=== PATIENT | male | born 1965 | race African-American/Black ===

== ENCOUNTER 2017-05-02 13:43 | Day surgery (SDC) | payer OTHER, BC ==
[~2017-05-02] VITALS: Ht 182.9 cm; Wt 111.1 kg
[~2017-05-02 13:43] MED LIST: ASPIRIN81 M2 PO; CLARITIN,ALAVAR10 MG PO; COZAAR25 MG PO; FOLIC ACID1 MG PO; MAGNESIUM400 M1 PO; MYFORTIC360 MG PO; NORVASC5 MG PO; PHOSPHA250 MG PO; PRILOSEC OTC20 MG PO; PROGRAF1 MG PO; ROCALTROL0.25 MCG PO
[2017-05-02 14:24] VITALS: BP 131/82
[2017-05-02 15:04] LABS: HEMATOCRIT 36.4 % (38.0-50.0); MCH 29.9 PG (29.0-34.0); MCV 90.5 FL (86-99); MEAN PLAT.VOLUME 9.7 uM^3 (9.0-12.4); PLATELET COUNT 148 K/uL (156-360); RBC DIS.WIDTH-CV 14.2 % (11.8-14.6); RBC DIS.WIDTH-SD 47.2 % (39-53); RED BLOOD COUNT 4.02 M/uL (4.00-5.50); WHITE BLOOD COUNT 4.6 K/uL (4.1-10.2)
[2017-05-02 15:15] LABS: ANION GAP 8 MEQ/L (2-14); CHLORIDE 111 MEQ/L (99-109); POTASSIUM 3.3 MEQ/L (3.7-5.4); SAMPLE HEMOLYSIS CHECK 0; SAMPLE ICTERIC CHECK 0; SAMPLE LIPEMIA CHECK 0; SODIUM 144 MEQ/L (136-147)
[2017-05-02 15:20] LABS: GFR ESTIMATE (CALCULATED) 55 mL/min/; GLUCOSE 78 mg/dL (70-99); UREA NITROGEN (BUN) 17 mg/dL (9-23)
[2017-05-02 19:43] VITALS: BP 185/96
[2017-05-02 20:45] VITALS: BP 148/80
== END 2017-05-02 20:59 | disposition home or self-care (01) ==
LOC: SDC 13:43
PROVIDERS: Surgery
PROC: 03BY0ZZ Excision of Upper Artery, Open Approach (ICD-10-PCS; principal; 2017-05-02)
DX: T82.590A Other mechanical complication of surgically created arteriovenous fistula, initial encounter (principal); Z94.0 Kidney transplant status; Z98.84 Bariatric surgery status; I10 Essential (primary) hypertension; Z79.82 Long term (current) use of aspirin; K21.9 Gastro-esophageal reflux disease without esophagitis; Y83.2 Surgical operation with anastomosis, bypass or graft as the cause of abnormal reaction of the patient, or of later complication, without mention of misadventure at the time of the procedure
CPT/HCPCS: 80048; 85027; 93005; J0690; J1170; J1644; J2250; J2405; J2720; J3010